=== PATIENT | female | born 1940 | race Caucasian/White ===

== ENCOUNTER 2017-04-22 10:55 | Inpatient (IN) | payer MEDICARE ==
--- NOTE | 2017-04-22 11:24 | EDM.PDOC ---
ED HPI GENERAL MEDICAL PROBLEM - General Chief Complaint: Cardiovascular Problem Stated Complaint: LOW PLUSE Time Seen by Provider: 04/22/17 11:05 Source of Information: Reports: Old Records, Provider (at [facility]), Other (caregiver) History Limitations: Reports: Uncooperative (patient with mental retardation) - History of Present Illness INITIAL COMMENTS - FREE TEXT/NARRATIVE: 77 yo female was taken this morning to the clinic in [place] for not eating, sleeping more, and difficulty with standing. No respiratory issues. No diaphoresis. No new meds or changes in dosage. After assessment in [place] she was noted to be bradycardic in the 40's so was referred to the ER. Gina lives in a fpc. Onset: Gradual Duration: Day(s): Location: Reports: Chest (No pain) Severity: Moderate Improves with: Reports: Rest Worsens with: Reports: Movement (or vertical/upright posture) Context: Reports: Other (unknown) Associated Symptoms: Reports: Malaise. Denies: Chest Pain, Fever/Chills, Shortness of Breath Treatments CNC SET UP OPERATOR: Reports: Other (see below) (none) Other Treatments CNC SET UP OPERATOR: none - Related Data Allergies Allergy/AdvReac Type Severity Reaction Status Date / Time No Known Allergies Allergy Verified 04/22/17 11:13 Home Meds: Home Meds Acetaminophen [Tylenol Extra Strength] 500 mg PO BID 09/05/15 [History] Aspirin [Aspirin EC] 81 mg PO DAILY 09/05/15 [History] Calcium Carbonate/Vitamin D3 [Calcium 600 + Vit D 400 Tablet] 1 each PO TID 04/11 [History] Cyanocobalamin (Vitamin B-12) [B-12] 500 mcg PO DAILY 09/05/15 [History] Docusate Sodium [Doc-Q-Lace] 100 mg PO DAILY 09/05/15 [History] Ferrous Sulfate [Ferrous Sulfate] 324 mg PO BID 09/05/15 [History] Folic Acid/Mv,Fe,Min [Centrum Multivitamin] 1 tab PO DAILY 09/05/15 [History] Pantoprazole Sodium [Protonix] 40 mg PO DAILY 09/05/15 [History] Phenytoin Sodium Extended 200 mg PO DAILY 09/05/15 [History] Phenytoin [Dilantin] 60 mg PO DAILY 09/05/15 [History] Potassium Chloride 20 meq PO DAILY 09/05/15 [History] Simvastatin [Simvastatin] 20 mg PO DAILY 09/05/15 [History] Triamterene/Hydrochlorothiazid [Triamterene-HCTZ 37.5-25 MG] 1 each PO DAILY 04/11 [History] cloNIDine HCl [Clonidine HCl] 0.1 mg PO DAILY 09/05/15 [History] Calcitonin,[place],Synthetic [Calcitonin-[place]] 1 spray NS DAILY 04/22/17 [ History] Captopril [Capoten] 50 mg PO BID 04/22/17 [History] Cholecalciferol (Vitamin D3) [D-2000] 2,000 unit PO DAILY 04/22/17 [History] Clotrimazole/Betamethasone Dip [Lotrisone Cream] 1 applic TP ASDIRECTED [History] Past Medical History HEENT History: Reports: Impaired Vision Cardiovascular History: Reports: High Cholesterol, Hypertension Gastrointestinal History: Reports: Cholelithiasis, Chronic Constipation, Colon Polyp, GERD, Other (See Below) Other Gastrointestinal History: Gastric cancer Genitourinary History: Reports: Urinary Incontinence Musculoskeletal History: Reports: Fracture, Neck Pain, Chronic, Osteoarthritis Neurological History: Reports: Seizure Psychiatric History: Reports: Learning Disability, Other (See Below) Other Psychiatric History: Mental retardation Endocrine/Metabolic History: Reports: Osteopenia Hematologic History: Reports: Anemia, Iron Deficiency Oncologic (Cancer) History: Reports: Other (See Below) Other Oncologic History: Stomach Dermatologic History: Reports: Eczema - Infectious Disease History Infectious Disease History: Reports: Chicken Pox, Shingles - Past Surgical History GI Surgical History: Reports: Cholecystectomy, Colonoscopy, Other (See Below) Social & Family History - Tobacco Use Smoking Status *Q: Never Smoker Second Hand Smoke Exposure: No - Alcohol Use Days Per Week of Alcohol Use: 0 - Recreational Drug Use Recreational Drug Use: No ED ROS GENERAL - Review of Systems Review Of Systems: Unable To Obtain (due to severe retardation) ED EXAM, GENERAL - Physical Exam Exam: See Below Exam Limited By: Uncooperative General Appearance: Alert, WD/WN, No Apparent Distress Eye Exam: Bilateral Eye: Normal Inspection, PERRL Ears: Normal External Exam, Normal Canal Ear Exam: Bilateral Ear: Auricle Normal, Canal Normal Nose: Normal Inspection, Normal Mucosa, No Blood Throat/Mouth: Normal Inspection, Normal Lips, Normal Oropharynx, Normal Voice, No Airway Compromise Head: Atraumatic, Normocephalic Neck: Normal Inspection Respiratory/Chest: No Respiratory Distress, Lungs Clear, Normal Breath Sounds, No Accessory Muscle Use Cardiovascular: Regular Rate, Rhythm, Bradycardia GI/Abdominal: Normal Bowel Sounds, Soft, Non-Tender, No Distention Back Exam: Normal Inspection. No: CVA Tenderness (R), CVA Tenderness (L) Extremities: Normal Inspection, Normal Range of Motion, Non-Tender, No Pedal Edema Neurological: Alert, CN II-XII Intact, No Motor/Sensory Deficits Psychiatric: Normal Affect, Normal Mood Skin Exam: Warm, Dry, Intact, Normal Color, No Rash Lymphatic: No Adenopathy Course - Vital Signs Text/Narrative:: Hospitalist notified @ 1200h, will see in ER Last Recorded V/S: Last Vital Signs Temp 35.1 C L 04/22/17 11:14 Pulse 42 L 04/22/17 11:14 Resp 10 L 04/22/17 11:14 BP 113/62 04/22/17 11:14 Pulse Ox 96 04/22/17 11:14 - Orders/Labs/Meds Orders: Active Orders 24 hr Category Date Time Status Cardiac Monitoring [RC] .As Directed Care 04/22/17 11:17 Active Sodium Chloride 0.9% @ 125 MLS/HR (1000ml) Med 04/22/17 12:00 Ordered Sodium Chloride 0.9% [Normal Saline] 1,000 ml IV ASDIRECTED Sodium Chloride 0.9% [Saline Flush] Med 04/22/17 11:17 Active 10 ml FLUSH ASDIRECTED PRN Saline Lock Insert [OM.PC] Routine Oth 04/22/17 11:17 Ordered Medication Orders Sodium Chloride (Normal Saline) 1,000 mls @ 125 mls/hr IV ASDIRECTED RAKESH Sodium Chloride (Saline Flush) 10 ml FLUSH ASDIRECTED PRN PRN Reason: Keep Vein Open Last Admin: 04/22/17 11:25 Dose: 10 ml Labs: Laboratory Tests 04/22/17 04/22/17 Range/Units 11: 11:27 WBC 6.0 (4.5-11.0) K/uL RBC 4.45 (3.30-5.50) M/uL Hgb 13.7 (12.0-15.0) g/dL Hct 42.1 (36.0-48.0) % MCV 95 (80-98) fL MCH 31 (27-31) pg MCHC 33 (32-36) % Plt Count 173 (150-400) K/uL Sodium 134 L (140-148) mmol/L Potassium 5.2 (3.6-5.2) mmol/L Chloride 99 L (100-108) mmol/L Carbon Dioxide 28 (21-32) mmol/L Anion Gap 12.2 (5.0-14.0) mmol/L BUN 26 H (7-18) mg/dL Creatinine 1.3 H (0.6-1.0) mg/dL Est Cr Clr Drug Dosing 28.21 mL/min Estimated GFR (MDRD) 40 L (>60) Glucose 117 H (74-106) mg/dL Calcium 9.4 (8.5-10.1) mg/dL Troponin I < 0.017 (0.000-0.056) ng/mL Meds: Medications Generic Name Dose Route Start Last Admin Trade Name Freq PRN Reason Stop Dose Admin Sodium Chloride 1,000 mls @ 125 mls/hr 04/22/17 12:00 Normal Saline IV ASDIRECTED RAKESH Sodium Chloride 10 ml 04/22/17 11:17 04/22/17 11:25 Saline Flush FLUSH 10 ml ASDIRECTED PRN Administration Keep Vein Open Departure - Departure Time of Disposition: 12:15 Disposition: Admitted As Inpatient 65 Condition: Fair Clinical Impression: Bradycardia Referrals: Tushar Mera MD [Primary Care Provider] - Forms: ED Department Discharge - My Orders Last 24 Hours: My Active Orders 04/22/17 11:17 Cardiac Monitoring [RC] .As Directed Sodium Chloride 0.9% [Saline Flush] 10 ml FLUSH ASDIRECTED PRN Saline Lock Insert [OM.PC] Routine 04/22/17 12:00 Sodium Chloride 0.9% @ 125 MLS/HR (1000ml) Sodium Chloride 0.9% [Normal Saline] 1,000 ml IV ASDIRECTED - Assessment/Plan Last 24 Hours: My Active Orders 04/22/17 11:17 Cardiac Monitoring [RC] .As Directed Sodium Chloride 0.9% [Saline Flush] 10 ml FLUSH ASDIRECTED PRN Saline Lock Insert [OM.PC] Routine 04/22/17 12:00 Sodium Chloride 0.9% @ 125 MLS/HR (1000ml) Sodium Chloride 0.9% [Normal Saline] 1,000 ml IV ASDIRECTED
[2017-04-22] MEDS: Sodium Chloride 0.9% 10 ML Syringe FLUSH PRN (11:25)
[2017-04-22] MEDS ORDERED: Sodium Chloride 0.9% 1,000 ML IV SCH (12:00)
--- NOTE | 2017-04-22 12:31 | PCM.HP ---
H&P History of Present Illness - General Date of Service: 04/22/17 Admit Problem/Dx: Admission Diagnosis/Problem Admission Diagnosis/Problem Bradycardia Source of Information: Provider, Other. No: Patient History Limitations: Reports: Altered Mental Status - History of Present Illness Initial Comments - Free Text/Narative: Gina presents to the emergency room today with fatigue and decreased level of consciousness. She is unable to provide any history at this time and history is gathered from one [facility]. Her caregiver reports that she has for the past few days been much less active than usual and has been sleeping much of the day. She falls asleep easily. She has not had much of an appetite. She is very unsteady on her feet which is a big change from usual. They're not aware of any fevers. She has not complained of any pain. She does appear to be a little winded with activity. They haven't noticed a change in bowel or bladder habits. She was initially seen in the clinic in [place] and a noted bradycardia and she was sent to the emergency room for further evaluation. Workup in the emergency room has revealed symptomatic bradycardia with a heart rate in the upper 30s. Laboratory studies are reassuring. She will be admitted for further monitoring and management. - Related Data Allergies/Adverse Reactions: Allergies Allergy/AdvReac Type Severity Reaction Status Date / Time No Known Allergies Allergy Verified 04/22/17 11:13 Home Medications: Home Meds Acetaminophen [Tylenol Extra Strength] 500 mg PO TID 09/05/15 [History] Aspirin [Aspirin EC] 81 mg PO DAILY 09/05/15 [History] Calcium Carbonate/Vitamin D3 [Calcium 600 + Vit D 400 Tablet] 1 each PO TID 04/11 [History] Cyanocobalamin (Vitamin B-12) [B-12] 500 mcg PO DAILY 09/05/15 [History] Docusate Sodium [Doc-Q-Lace] 100 mg PO DAILY 09/05/15 [History] Ferrous Sulfate [Ferrous Sulfate] 324 mg PO BID 09/05/15 [History] Pantoprazole Sodium [Protonix] 40 mg PO DAILY 09/05/15 [History] Potassium Chloride 20 meq PO DAILY 09/05/15 [History] Simvastatin [Simvastatin] 20 mg PO DAILY 09/05/15 [History] Triamterene/Hydrochlorothiazid [Triamterene-HCTZ 37.5-25 MG] 1 each PO DAILY 04/11 [History] cloNIDine HCl [Clonidine HCl] 0.2 mg PO BID 09/05/15 [History] Calcitonin,[place],Synthetic [Calcitonin-[place]] 1 spray NS DAILY 04/22/17 [ History] Captopril [Capoten] 50 mg PO BID 04/22/17 [History] Cholecalciferol (Vitamin D3) [D-2000] 2,000 unit PO DAILY 04/22/17 [History] Clotrimazole/Betamethasone Dip [Lotrisone Cream] 1 applic TP ASDIRECTED [History] Phenytoin Sodium Extended [Dilantin] 300 mg PO DAILY 04/22/17 [History] Pyridoxine HCl 100 mg PO DAILY 04/22/17 [History] Past Medical History HEENT History: Reports: Impaired Vision Cardiovascular History: Reports: High Cholesterol, Hypertension Gastrointestinal History: Reports: Cholelithiasis, Chronic Constipation, Colon Polyp, GERD, Other (See Below) Other Gastrointestinal History: Gastric cancer Genitourinary History: Reports: Urinary Incontinence Other Genitourinary History: Does alert staff when needs to use bathroom. Does not wear depends. Musculoskeletal History: Reports: Fracture, Neck Pain, Chronic, Osteoarthritis Neurological History: Reports: Seizure Psychiatric History: Reports: Learning Disability, Other (See Below) Other Psychiatric History: Mental retardation Endocrine/Metabolic History: Reports: Osteopenia Hematologic History: Reports: Anemia, Iron Deficiency Oncologic (Cancer) History: Reports: Other (See Below) Other Oncologic History: Stomach Dermatologic History: Reports: Eczema - Infectious Disease History Infectious Disease History: Reports: Chicken Pox, Shingles - Past Surgical History GI Surgical History: Reports: Cholecystectomy, Colonoscopy, Other (See Below) Social & Family History - Family History Family Medical History: Unobtainable - Tobacco Use Smoking Status *Q: Never Smoker Second Hand Smoke Exposure: No - Caffeine Use Caffeine Use: Reports: Coffee - Alcohol Use Days Per Week of Alcohol Use: 0 - Recreational Drug Use Recreational Drug Use: No H&P Review of Systems - Review of Systems: Review Of Systems: Unable To Obtain Free Text/Narrative: pt not able to respond to any questions Exam - Exam Exam: See Below - Vital Signs Vital Signs: Last Vital Signs Temp 35.1 C L 04/22/17 11:14 Pulse 42 L 04/22/17 11:14 Resp 10 L 04/22/17 11:14 BP 113/62 04/22/17 11:14 Pulse Ox 96 04/22/17 11:14 Weight: 70.307 kg - Exam Quality Assessment: No: Supplemental Oxygen General: Alert, Cooperative, Lethargic. No: Oriented HEENT: Conjunctiva Clear, Mucosa Moist & [place]. No: Scleral Icterus Neck: Supple, Trachea Midline. No: Lymphadenopathy Lungs: Clear to Auscultation, Normal Respiratory Effort Cardiovascular: Regular Rhythm, Bradycardia. No: Systolic Murmur GI/Abdominal Exam: Normal Bowel Sounds, Soft Extremities: No Pedal Edema. No: Increased Warmth Peripheral Pulses: 1+: Dorsalis Pedis (L), Dorsalis Pedis (R) Skin: Warm, Dry Neuro Extensive - Mental Status: Alert, Slow Response to Commands. No: Oriented x3 Neuro Extensive - Motor, Sensory, Reflexes: Dysarthria. No: Abnormal Motor, Tremor Psychiatric: Alert, Normal Affect - Patient Data Lab Results Last 24 hrs: Laboratory Results - last 24 hr 04/22/17 04/22/17 Range/Units 11:27 11:27 WBC 6.0 (4.5-11.0) K/uL RBC 4.45 (3.30-5.50) M/uL Hgb 13.7 (12.0-15.0) g/dL Hct 42.1 (36.0-48.0) % MCV 95 (80-98) fL MCH 31 (27-31) pg MCHC 33 (32-36) % Plt Count 173 (150-400) K/uL Sodium 134 L (140-148) mmol/L Potassium 5.2 (3.6-5.2) mmol/L Chloride 99 L (100-108) mmol/L Carbon Dioxide 28 (21-32) mmol/L Anion Gap 12.2 (5.0-14.0) mmol/L BUN 26 H (7-18) mg/dL Creatinine 1.3 H (0.6-1.0) mg/dL Est Cr Clr Drug Dosing 28.21 mL/min Estimated GFR (MDRD) 40 L (>60) Glucose 117 H (74-106) mg/dL Calcium 9.4 (8.5-10.1) mg/dL Troponin I < 0.017 (0.000-0.056) ng/mL Result Diagrams: 04/22/17 11:27 04/22/17 11:27 EKG INTERPRETATION EKG Date: 04/22/17 ([facility] EKG) Rhythm: Other (sinus bradycardia) Rate (Beats/Min): 40 [place]: Normal P-Wave: Present QRS: Normal ST-T: Normal QT: Normal EKG Interpretation Comments: EKG image personally reviewed *Q Meaningful Use (ADM) - VTE *Q VTE Criteria *Q: VTE Pharmacological Contraindications *Q: Patient Scheduled Surgery - VTE Risk Assess *Q Each Risk Factor Represents 1 Point: Minor Surgery Planned Total Score 1 Point Risk Factors: 1 Each Risk Factor Represents 2 Points: None Total Score 2 Point Risk Factors: 0 Each Risk Factor Represents 3 Points: Age 75 Years or Greater Total Score 3 Point Risk Factors: 3 Each Risk Factor Represents 5 Points: None Total Score 5 Point Risk Factors: 0 Venous Thromboembolism Risk Factor Score *Q: 4 - Stroke *Q Stroke Criteria *Q: - AMI *Q AMI Criteria *Q: - Problem List (1) Symptomatic bradycardia SNOMED Code(s): 91053286 ICD Code: R00.1 - BRADYCARDIA, UNSPECIFIED Status: Acute Current Visit: Yes (2) Epilepsy SNOMED Code(s): 74181688 ICD Code: G40.909 - EPILEPSY, UNSP, NOT INTRACTABLE, WITHOUT STATUS EPILEPTICUS Status: Chronic Current Visit: Yes Qualifiers: Epilepsy type: unspecified Intractability: not intractable Status epilepticus: without status epilepticus Qualified Code(s): G40.909 - Epilepsy , unspecified, not intractable, without status epilepticus (3) Mental retardation SNOMED Code(s): 21510362 ICD Code: F79 - UNSPECIFIED INTELLECTUAL DISABILITIES Status: Chronic Current Visit: Yes Problem List Initiated/Reviewed/Updated: Yes Orders Last 24hrs: Active Orders 24 hr Category Date Time Status Patient Status Manage Transfer [TRANSFER] Routine ADT 04/22/17 12:22 Ordered Cardiac Monitoring [RC] .As Directed Care 04/22/17 11:17 Active MAGNESIUM [CHEM] Routine Lab 04/22/17 11:25 Received Sodium Chloride 0.9% [Normal Saline] 1,000 ml Med 04/22/17 12:00 Active IV ASDIRECTED Sodium Chloride 0.9% [Saline Flush] Med 11/27/17 11:17 Active 10 ml FLUSH ASDIRECTED PRN Saline Lock Insert [OM.PC] Routine Oth 04/22/17 11:17 Ordered Resuscitation Status Routine Resus Stat 04/22/17 12:24 Ordered Medication Orders Sodium Chloride (Normal Saline) 1,000 mls @ 125 mls/hr IV ASDIRECTED RAKESH Last Admin: 04/22/17 12:05 Dose: 125 mls/hr Sodium Chloride (Saline Flush) 10 ml FLUSH ASDIRECTED PRN PRN Reason: Keep Vein Open Last Admin: 04/22/17 11:25 Dose: 10 ml Assessment/Plan Comment:: ASSESSMENT AND PLAN - Symptomatically bradycardia - significant symptoms. At this point and not sure if it's related to conduction disease or possibly medication effect. Clonidine seems to be the most likely potential culprit but still has a low potential to be causing this kind of trouble. Planning admission and will hold the medication and monitor her heart rate overnight and decide on pacemaker insertion tomorrow. -Cardiac monitoring -Discontinue clonidine -Reassess necessity of permanent pacemaker tomorrow -Check magnesium and TSH Epilepsy - chronic and stable. -Continue home medications Decision-making capacity - Patient has a surrogate decision-maker should be contacted with any need for consent. Her number is listed in the paper chart as well as the electronic medical record. Maintenance issues - - DVT prophylaxis - mechanical with possible surgery - GI prophylaxis - PPI - Nutrition - regular diet - Gibbs catheter - not indicated CODE STATUS - full code Admission justification - This patient will be admitted for inpatient services and is medically appropriate meeting medical necessity for inpatient admission as outlined in my documentation. I reasonably expect the patient will require inpatient services that span a period time over 2 midnights. I reasonably expect this patient to be discharged or transferred within 96 hours [facility] Disposition - anticipate discharge to home after the hospital stay Primary care physician - Dr Ede Moreno M.D.
[2017-04-22] MEDS ORDERED: Polyethylene Glycol 3350 Powder 17 GM Packet PO PRN (13:59)
[2017-04-22] MEDS ORDERED: Acetaminophen 325 MG Tab PO PRN (13:59)
[2017-04-22] MEDS ORDERED: Ondansetron 4 MG Tab.DIS PO PRN (13:59)
[2017-04-22] MEDS: Acetaminophen 500 MG Tab PO SCH ×2 (14:58→22:25)
[2017-04-22] MEDS: Magnesium Sulfate/Water 2 GM in Premix Bag 1 BAG IV SCH ×2 (16:00→22:27)
[2017-04-22] MEDS ORDERED: LORazepam 2 MG/ML MDV IVPUSH PRN (16:44)
[2017-04-22] MEDS: Ferrous Sulfate 325 MG Tab PO SCH (22:23)
[2017-04-22] MEDS: Simvastatin 20 MG Tab PO SCH (22:26)
[2017-04-23] MEDS: LORazepam 0.5 MG Tab PO PRN ×2 (04:15→20:34)
[2017-04-23] MEDS ORDERED: Potassium Chloride 10% 20 MEQ/15 ML Soln 15 ML UD Cup PO SCH (09:00)
[2017-04-23] MEDS ORDERED: LORazepam 2 MG/ML MDV IVPUSH PRN (09:49)
--- NOTE | 2017-04-23 09:53 | PCM.PN ---
- General Info Date of Service: 04/23/17 Subjective Update: Ms. Greco is a 77-year-old woman who was admitted yesterday with weakness and lethargy secondary to bradycardia. Clonidine was identified as a possible contributing factor to her bradycardia and has been held. Since yesterday heart rate has improved modestly, she is currently very sedate and lethargic secondary to having received lorazepam for agitation. Unable to answer specific questions concerning review of systems secondary to cognitive impairment and sedation. - Patient Data Vitals - Most Recent: Last Vital Signs Temp 95.7 F 04/23/17 07:58 Pulse 48 L 04/23/17 09:16 Resp 13 04/23/17 09:16 BP 127/55 L 04/23/17 09:16 Pulse Ox 90 L 04/23/17 09:16 Weight - Most Recent: 151 lb 10.848 oz I&O - Last 24 Hours: Intake & Output 04/22/17 04/23/17 04/23/17 22:59 06:59 14:59 Intake Total 50 368 Output Total 850 Balance 50 -482 Med Orders - Current: Current Medications Acetaminophen (Tylenol Extra Strength) 500 mg PO TID [facility] Last Admin: 04/22/17 22:25 Dose: 500 mg Acetaminophen (Tylenol) 650 mg PO Q4H PRN PRN Reason: Pain (Mild 1-3)/fever Aspirin (Halfprin) 81 mg PO DAILY [facility] Calcitonin Saline (Miacalcin Nasal [place]) 0 ml TRAY DAILY [facility] Captopril (Capoten) 50 mg PO BID [facility] Last Admin: 04/22/17 22:26 Dose: 50 mg Cyanocobalamin (Vitamin B12) 500 mcg PO DAILY [facility] Docusate Sodium (Colace) 100 mg PO DAILY [facility] Ferrous Sulfate (Ferrous Sulfate) 324 mg PO BID [facility] Last Admin: 04/22/17 22:23 Dose: Not Given Lorazepam (Ativan) 0.5 mg PO Q4H PRN PRN Reason: Anxiety Last Admin: 04/23/17 04:15 Dose: 0.5 mg Lorazepam (Ativan) 0.25 mg IVPUSH Q4H PRN PRN Reason: Anxiety Ondansetron HCl (Zofran Odt) 4 mg PO Q6H PRN PRN Reason: Nausea able to take PO Pantoprazole Sodium (Protonix) 40 mg PO DAILY@0730 [facility] Phenytoin Sodium (Phenytoin) 300 mg PO DAILY [facility] Polyethylene Glycol (Miralax) 17 gm PO DAILY PRN PRN Reason: Constipation Potassium Chloride (Potassium Chloride Solution) 20 meq PO DAILY RAKESH Pyridoxine HCl (Vitamin B6-Pyridoxine) 100 mg PO DAILY RAKESH Simvastatin (Zocor) 20 mg PO BEDTIME RAKESH Last Admin: 04/22/17 22:26 Dose: 20 mg Sodium Chloride (Saline Flush) 10 ml FLUSH ASDIRECTED PRN PRN Reason: Keep Vein Open Last Admin: 04/22/17 11:25 Dose: 10 ml Triamterene/HCTZ (Dyazide 25-37.5 Mg) 1 each PO DAILY RAKESH Discontinued Medications Sodium Chloride (Normal Saline) 1,000 mls @ 125 mls/hr IV ASDIRECTED RAKESH Last Admin: 04/22/17 12:05 Dose: 125 mls/hr Magnesium Sulfate 2 gm/ Premix 50 mls @ 12.5 mls/hr IV Q6H RAKESH Stop: 04/23/17 01:59 Last Admin: 04/22/17 22:27 Dose: 12.5 mls/hr Lorazepam (Ativan) 0.5 mg IVPUSH Q4H PRN PRN Reason: Anxiety Last Admin: 04/22/17 17:06 Dose: 0.5 mg - Exam General: Sedated, Lethargic Lungs: Clear to Auscultation, Normal Respiratory Effort Cardiovascular: Regular Rhythm, No Murmurs, Bradycardia GI/Abdominal Exam: Normal Bowel Sounds, Soft, Non-Tender, No Organomegaly, No Distention - Problem List Review Problem List Initiated/Reviewed/Updated: Yes - My Orders Last 24 Hours: My Active Orders 04/23/17 09:49 LORazepam [Ativan] 0.25 mg IVPUSH Q4H PRN - Plan Plan:: ASSESSMENT AND PLAN - Symptomatic bradycardia - significant symptoms. At this point and not sure if it 's related to conduction disease or possibly medication effect. Clonidine seems to be the most likely potential culprit but still has a low potential to be causing this kind of trouble. Planning admission and will hold the medication and monitor her heart rate overnight and decide on pacemaker insertion tomorrow. -Cardiac monitoring -Discontinue clonidine -Reassess necessity of permanent pacemaker tomorrow -Given improvement in heart rate we'll continue to monitor an additional 24 hours off of clonidine Epilepsy - chronic and stable. -Continue home medications Decision-making capacity - Patient has a surrogate decision-maker should be contacted with any need for consent. Her number is listed in the paper chart as well as the electronic medical record. Maintenance issues - - DVT prophylaxis - mechanical with possible surgery - GI prophylaxis - PPI - Nutrition - regular diet - Gibbs catheter - not indicated CODE STATUS - full code Admission justification - This patient will be admitted for inpatient services and is medically appropriate meeting medical necessity for inpatient admission as outlined in my documentation. I reasonably expect the patient will require inpatient services that span a period time over 2 midnights. I reasonably expect this patient to be discharged or transferred within 96 hours [facility]. Disposition - anticipate discharge to home after the hospital stay Primary care physician - Dr Mera
[2017-04-23] MEDS ORDERED: Sodium Chloride 0.9% 1,000 ML IV SCH (12:00)
[2017-04-23] MEDS: Calcitonin (Salmon) Nasal Spray 3.7 ML Bottle NAS SCH (13:47)
[2017-04-23] MEDS: Pantoprazole 40 MG Tab.CR PO SCH (13:57)
[2017-04-23] MEDS: Magnesium Oxide 400 MG Tab PO SCH ×2 (13:58→20:35)
[2017-04-23] MEDS: Acetaminophen 500 MG Tab PO SCH ×3 (13:59→20:34)
[2017-04-23] MEDS: Vitamin B6-pyridOXINE 50 MG Tab PO SCH (13:59)
[2017-04-23] MEDS: Docusate Sodium 100 MG Cap PO SCH (14:00)
[2017-04-23] MEDS: Cyanocobalamin (Vitamin B12) 1,000 MCG Tab PO SCH (14:00)
[2017-04-23] MEDS: Aspirin 81 MG Tab.EC PO SCH (14:00)
[2017-04-23] MEDS: Ferrous Sulfate 325 MG Tab PO SCH ×2 (14:01→20:34)
[2017-04-23] MEDS: Hydrochlorothiazide/Triamterene 25-37.5 MG Cap PO SCH (14:02)
[2017-04-23] MEDS: Phenytoin 100 MG Cap.ER PO SCH (14:02)
[2017-04-23] MEDS: Simvastatin 20 MG Tab PO SCH (20:35)
[2017-04-24] MEDS: Pantoprazole 40 MG Tab.CR PO SCH (07:26)
[2017-04-24] MEDS: Docusate Sodium 100 MG Cap PO SCH (08:27)
[2017-04-24] MEDS: Ferrous Sulfate 325 MG Tab PO SCH ×2 (08:28→20:05)
[2017-04-24] MEDS: Hydrochlorothiazide/Triamterene 25-37.5 MG Cap PO SCH (08:28)
[2017-04-24] MEDS: Calcitonin (Salmon) Nasal Spray 3.7 ML Bottle NAS SCH (08:29)
[2017-04-24] MEDS: Magnesium Oxide 400 MG Tab PO SCH ×2 (08:29→20:05)
[2017-04-24] MEDS: Aspirin 81 MG Tab.EC PO SCH (08:29)
[2017-04-24] MEDS: Phenytoin 100 MG Cap.ER PO SCH (08:30)
[2017-04-24] MEDS: Acetaminophen 500 MG Tab PO SCH ×3 (08:31→20:05)
[2017-04-24] MEDS: Cyanocobalamin (Vitamin B12) 1,000 MCG Tab PO SCH (08:31)
[2017-04-24] MEDS: Vitamin B6-pyridOXINE 50 MG Tab PO SCH (08:31)
[2017-04-24] MEDS: hydrALAZINE 10 MG Tab PO SCH ×4 (09:02→21:31)
--- NOTE | 2017-04-24 09:05 | PCM.PN ---
- General Info Date of Service: 04/24/17 Subjective Update: Ms. Greco has experienced improvement in her heart rate over the past 24 hours typically now running in the 50s. Blood pressures trended somewhat high off of the clonidine. This morning she is sitting in the chair and eating breakfast. She is unable to provide significant information concerning review of systems because of her underlying cognitive impairment. Functional Status: Reports: Tolerating Diet, Urinating - Patient Data Vitals - Most Recent: Last Vital Signs Temp 96.3 F 04/23/17 23:46 Pulse 52 L 04/24/17 06:00 Resp 14 04/24/17 06:00 BP 183/82 H 04/24/17 08:26 Pulse Ox 99 04/24/17 06:00 Weight - Most Recent: 151 lb 10.848 oz I&O - Last 24 Hours: Intake & Output 04/23/17 04/24/17 04/24/17 22:59 06:59 14:59 Intake Total 508 1455 Output Total 600 500 Balance -92 955 Lab Results Last 24 Hours: Laboratory Results - last 24 hr 04/24/17 Range/Units 04:30 Sodium 137 L (140-148) mmol/L Potassium 4.6 (3.6-5.2) mmol/L Chloride 103 (100-108) mmol/L Carbon Dioxide 26 (21-32) mmol/L Anion Gap 12.6 (5.0-14.0) mmol/L BUN 19 H (7-18) mg/dL Creatinine 1.1 H (0.6-1.0) mg/dL Est Cr Clr Drug Dosing 33.05 mL/min Estimated GFR (MDRD) 48 L (>60) Glucose 90 (74-106) mg/dL Calcium 8.5 (8.5-10.1) mg/dL Magnesium 1.9 (1.8-2.4) mg/dL Med Orders - Current: Current Medications Acetaminophen (Tylenol Extra Strength) 500 mg PO TID [facility] Last Admin: 04/24/17 08:31 Dose: 500 mg Acetaminophen (Tylenol) 650 mg PO Q4H PRN PRN Reason: Pain (Mild 1-3)/fever Aspirin (Halfprin) 81 mg PO DAILY [facility] Last Admin: 04/24/17 08:29 Dose: 81 mg Calcitonin [place] (Miacalcin Nasal [place]) 0 ml TRAY DAILY [facility] Last Admin: 04/24/17 08:29 Dose: 1 spray Captopril (Capoten) 50 mg PO BID [facility] Last Admin: 04/24/17 08:26 Dose: 50 mg Cyanocobalamin (Vitamin B12) 500 mcg PO DAILY [facility] Last Admin: 04/24/17 08:31 Dose: 500 mcg Docusate Sodium (Colace) 100 mg PO DAILY [facility] Last Admin: 04/24/17 08:27 Dose: 100 mg Ferrous Sulfate (Ferrous Sulfate) 324 mg PO BID [facility] Last Admin: 04/24/17 08:28 Dose: 325 mg Hydralazine HCl (Apresoline) 10 mg PO Q6H [facility] Sodium Chloride (Normal Saline) 1,000 mls @ 75 mls/hr IV ASDIRECTED [facility] Last Admin: 04/23/17 19:37 Dose: 75 mls/hr Lorazepam (Ativan) 0.5 mg PO Q4H PRN PRN Reason: Anxiety Last Admin: 04/23/17 20:34 Dose: 0.5 mg Lorazepam (Ativan) 0.25 mg IVPUSH Q4H PRN PRN Reason: Anxiety Magnesium Oxide (Magnesium Oxide) 400 mg PO BID [facility] Last Admin: 04/24/17 08:29 Dose: 400 mg Ondansetron HCl (Zofran Odt) 4 mg PO Q6H PRN PRN Reason: Nausea able to take PO Pantoprazole Sodium (Protonix) 40 mg PO DAILY@0730 [facility] Last Admin: 04/24/17 07:26 Dose: 40 mg Phenytoin Sodium (Phenytoin) 300 mg PO DAILY [facility] Last Admin: 04/24/17 08:30 Dose: 300 mg Polyethylene Glycol (Miralax) 17 gm PO DAILY PRN PRN Reason: Constipation Pyridoxine HCl (Vitamin B6-Pyridoxine) 100 mg PO DAILY [facility] Last Admin: 04/24/17 08:31 Dose: 100 mg Simvastatin (Zocor) 20 mg PO BEDTIME [facility] Last Admin: 04/23/17 20:35 Dose: 20 mg Sodium Chloride (Saline Flush) 10 ml FLUSH ASDIRECTED PRN PRN Reason: Keep Vein Open Last Admin: 04/22/17 11:25 Dose: 10 ml Triamterene/HCTZ (Dyazide 25-37.5 Mg) 1 each PO DAILY [facility] Last Admin: 04/24/17 08:28 Dose: 1 each Discontinued Medications Sodium Chloride (Normal Saline) 1,000 mls @ 125 mls/hr IV ASDIRECTED [facility] Last Admin: 04/22/17 12:05 Dose: 125 mls/hr Magnesium Sulfate 2 gm/ Premix 50 mls @ 12.5 mls/hr IV Q6H [facility] Stop: 04/23/17 01:59 Last Admin: 04/22/17 22:27 Dose: 12.5 mls/hr Lorazepam (Ativan) 0.5 mg IVPUSH Q4H PRN PRN Reason: Anxiety Last Admin: 04/22/17 17:06 Dose: 0.5 mg Potassium Chloride (Potassium Chloride Solution) 20 meq PO DAILY [facility] - Exam General: Alert, No Acute Distress Lungs: Clear to Auscultation, Normal Respiratory Effort Cardiovascular: Regular Rhythm, No Murmurs, Bradycardia GI/Abdominal Exam: Normal Bowel Sounds, Soft, Non-Tender, No Organomegaly, No Distention Extremities: Non-Tender, No Pedal Edema Skin: Warm, Dry - Problem List Review Problem List Initiated/Reviewed/Updated: Yes - My Orders Last 24 Hours: My Active Orders 04/23/17 09:49 LORazepam [Ativan] 0.25 mg IVPUSH Q4H PRN 04/23/17 12:00 Magnesium Oxide 400 mg PO BID Sodium Chloride 0.9% [Normal Saline] 1,000 ml IV ASDIRECTED 04/24/17 10:00 hydrALAZINE [Apresoline] 10 mg PO Q6H - Plan Plan:: ASSESSMENT AND PLAN - Symptomatic bradycardia - significant symptoms. At this point and not sure if it 's related to conduction disease or possibly medication effect. Heart rate has improved off of clonidine but continues to remain less than 60. -Cardiac monitoring -Discontinue clonidine -Reassess necessity of permanent pacemaker tomorrow -Given improvement in heart rate we'll continue to monitor an additional 24 hours off of clonidine Epilepsy - chronic and stable. -Continue home medications Decision-making capacity - Patient has a surrogate decision-maker should be contacted with any need for consent. Her number is listed in the paper chart as well as the electronic medical record. Maintenance issues - - DVT prophylaxis - mechanical with possible surgery - GI prophylaxis - PPI - Nutrition - regular diet - Gibbs catheter - not indicated CODE STATUS - full code Admission justification - This patient will be admitted for inpatient services and is medically appropriate meeting medical necessity for inpatient admission as outlined in my documentation. I reasonably expect the patient will require inpatient services that span a period time over 2 midnights. I reasonably expect this patient to be discharged or transferred within 96 hours after admission to the [facility]. Disposition - anticipate discharge to home after the hospital stay Primary care physician - Dr Mera
--- NOTE | 2017-04-24 17:53 | PCM.SN ---
- Free Text/Narrative Note: Ms. Greco has had ongoing bradycardia despite having stopped clonidine. Heart rate today has been in the upper 40s to low 50s. Her hoist mechanic came to see her today and feels that she remains lethargic and weak from her baseline. 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 I discussed this with her guardian, Amie Rose and she has given consent to proceed with permanent pacemaker placement tomorrow. Dr. Kumari has been consult and will see the patient in the morning. She will be given IV fluids after midnight for hydration and kept nothing by mouth after midnight.
[2017-04-24] MEDS: Simvastatin 20 MG Tab PO SCH (20:09)
[2017-04-24] MEDS: LORazepam 0.5 MG Tab PO PRN (22:02)
[2017-04-24] MEDS: Sodium Chloride 0.9% 1,000 ML IV SCH (23:21)
[2017-04-25] MEDS: hydrALAZINE 10 MG Tab PO SCH ×5 (05:00→22:34)
[2017-04-25] MEDS: Sodium Chloride 0.9% 1,000 ML IV SCH ×2 (07:59→15:02)
[2017-04-25] MEDS: Phenytoin 100 MG Cap.ER PO SCH (08:00)
[2017-04-25] MEDS: Pantoprazole 40 MG Tab.CR PO SCH (08:02)
[2017-04-25] MEDS ORDERED: Bupivacaine 0.5% 50 ML MDV ONE (09:07)
[2017-04-25] MEDS ORDERED: Meropenem 500 MG SDV ONE (09:07)
[2017-04-25] MEDS ORDERED: Lidocaine 1% with EPINEPHrine 1:100,000 50 ML MDV ONE (09:07)
--- NOTE | 2017-04-25 09:16 | PCM.PN ---
- General Info Date of Service: 04/25/17 Subjective Update: Ms. Greco continued to experience bradycardia during the day yesterday and remained weak and lethargic from baseline. Decision was made to proceed with permanent pacemaker placement which is scheduled for this morning. She is otherwise been hemodynamically stable and afebrile over the past 24 hours. 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 - Patient Data Vitals - Most Recent: Last Vital Signs Temp 97.5 F 04/25/17 08:00 Pulse 60 04/25/17 05:58 Resp 16 04/25/17 08:00 BP 119/64 04/25/17 08:00 Pulse Ox 98 04/25/17 08:00 Weight - Most Recent: 151 lb 10.848 oz I&O - Last 24 Hours: Intake & Output 04/24/17 04/25/17 04/25/17 22:59 06:59 14:59 Intake Total 360 827 Output Total 400 Balance -40 827 Med Orders - Current: Current Medications Acetaminophen (Tylenol Extra Strength) 500 mg PO TID [facility] Last Admin: 04/24/17 20:05 Dose: 500 mg Acetaminophen (Tylenol) 650 mg PO Q4H PRN PRN Reason: Pain (Mild 1-3)/fever Aspirin (Halfprin) 81 mg PO DAILY [facility] Last Admin: 04/24/17 08:29 Dose: 81 mg Calcitonin [place] (Miacalcin Nasal [place]) 0 ml TRAY DAILY [facility] Last Admin: 04/24/17 08:29 Dose: 1 spray Captopril (Capoten) 50 mg PO BID [facility] Last Admin: 04/25/17 08:00 Dose: 50 mg Cyanocobalamin (Vitamin B12) 500 mcg PO DAILY [facility] Last Admin: 04/24/17 08:31 Dose: 500 mcg Docusate Sodium (Colace) 100 mg PO DAILY [facility] Last Admin: 04/24/17 08:27 Dose: 100 mg Ferrous Sulfate (Ferrous Sulfate) 324 mg PO BID [facility] Last Admin: 04/24/17 20:05 Dose: 325 mg Sodium Chloride (Normal Saline) 1,000 mls @ 100 mls/hr IV ASDIRECTED [facility] Last Admin: 04/25/17 07:59 Dose: 100 mls/hr Cefazolin Sodium/Dextrose 2 gm (/ Premix) 50 mls @ 100 mls/hr IV ONCALL ONE Stop: 04/25/17 11:59 Lorazepam (Ativan) 0.5 mg PO Q4H PRN PRN Reason: Anxiety Last Admin: 04/24/17 22:02 Dose: 0.5 mg Lorazepam (Ativan) 0.25 mg IVPUSH Q4H PRN PRN Reason: Anxiety Magnesium Oxide (Magnesium Oxide) 400 mg PO BID [facility] Last Admin: 04/24/17 20:05 Dose: 400 mg Ondansetron HCl (Zofran Odt) 4 mg PO Q6H PRN PRN Reason: Nausea able to take PO Pantoprazole Sodium (Protonix) 40 mg PO DAILY@0730 [facility] Last Admin: 04/25/17 08:02 Dose: Not Given Phenytoin Sodium (Phenytoin) 300 mg PO DAILY [facility] Last Admin: 04/25/17 08:00 Dose: 300 mg Polyethylene Glycol (Miralax) 17 gm PO DAILY PRN PRN Reason: Constipation Pyridoxine HCl (Vitamin B6-Pyridoxine) 100 mg PO DAILY [facility] Last Admin: 04/24/17 08:31 Dose: 100 mg Simvastatin (Zocor) 20 mg PO BEDTIME [facility] Last Admin: 04/24/17 20:09 Dose: 20 mg Sodium Chloride (Saline Flush) 10 ml FLUSH ASDIRECTED PRN PRN Reason: Keep Vein Open Last Admin: 04/22/17 11:25 Dose: 10 ml Triamterene/HCTZ (Dyazide 25-37.5 Mg) 1 each PO DAILY [facility] Last Admin: 04/24/17 08:28 Dose: 1 each Discontinued Medications Bupivacaine HCl (Marcaine 0.5%) Confirm Administered Dose 50 ml .ROUTE .STK-MED ONE Stop: 04/25/17 09:08 Hydralazine HCl (Apresoline) 10 mg PO Q6H [facility] Last Admin: 04/25/17 08:00 Dose: 10 mg Sodium Chloride (Normal Saline) 1,000 mls @ 125 mls/hr IV ASDIRECTED [facility] Last Admin: 04/22/17 12:05 Dose: 125 mls/hr Magnesium Sulfate 2 gm/ Premix 50 mls @ 12.5 mls/hr IV Q6H [facility] Stop: 04/23/17 01:59 Last Admin: 04/22/17 22:27 Dose: 12.5 mls/hr Sodium Chloride (Normal Saline) 1,000 mls @ 75 mls/hr IV ASDIRECTED [facility] Last Admin: 04/23/17 19:37 Dose: 75 mls/hr Lidocaine/Epinephrine (Xylocaine 1% With Epinephrine 1:100,000) Confirm Administered Dose 50 ml .ROUTE .STK-MED ONE Stop: 04/25/17 09:08 Lorazepam (Ativan) 0.5 mg IVPUSH Q4H PRN PRN Reason: Anxiety Last Admin: 04/22/17 17:06 Dose: 0.5 mg Meropenem (Merrem) Confirm Administered Dose 500 mg .ROUTE .STK-MED ONE Stop: 04/25/17 09:08 Potassium Chloride (Potassium Chloride Solution) 20 meq PO DAILY [facility] - Exam Quality Assessment: DVT Prophylaxis General: Alert, No Acute Distress Lungs: Clear to Auscultation, Normal Respiratory Effort Cardiovascular: Regular Rhythm, Bradycardia. No: Murmurs GI/Abdominal Exam: Soft, Non-Tender, No Organomegaly, No Distention Extremities: Non-Tender, No Pedal Edema Skin: Warm, Dry - Problem List Review Problem List Initiated/Reviewed/Updated: Yes - My Orders Last 24 Hours: My Active Orders 04/24/17 09:06 Convert IV to Saline Lock [OM.PC] Routine 04/24/17 17:49 Notify Provider Consults [RC] ASDIRECTED 04/24/17 23:55 Sodium Chloride 0.9% [Normal Saline] 1,000 ml IV ASDIRECTED 04/25/17 07:00 Consult to Physician [CONS] Routine 04/25/17 21:00 cloNIDine [Catapres] 0.2 mg PO Q12HR 04/25/17 Breakfast Nothing per Oral After Midnight Diet [DIET] - Plan Plan:: ASSESSMENT AND PLAN - Symptomatic bradycardia - significant symptoms. Heart rate has remained low despite having held clonidine. -Cardiac monitoring -Permanent pacemaker placement today -Resume clonidine after pacemaker placement Epilepsy - chronic and stable. -Continue home medications Decision-making capacity - Patient has a surrogate decision-maker should be contacted with any need for consent. Her number is listed in the paper chart as well as the electronic medical record. Maintenance issues - - DVT prophylaxis - mechanical with possible surgery - GI prophylaxis - PPI - Nutrition - regular diet - Gibbs catheter - not indicated CODE STATUS - full code Admission justification - This patient will be admitted for inpatient services and is medically appropriate meeting medical necessity for inpatient admission as outlined in my documentation. I reasonably expect the patient will require inpatient services that span a period time over 2 midnights. I reasonably expect this patient to be discharged or transferred within 96 hours after admission to the [facility]. Disposition - anticipate discharge to home after the hospital stay Primary care physician - Dr Mera
[2017-04-25] MEDS: Ferrous Sulfate 325 MG Tab PO SCH ×2 (10:31→16:06)
[2017-04-25] MEDS: Acetaminophen 500 MG Tab PO SCH ×3 (10:31→20:45)
[2017-04-25] MEDS: Magnesium Oxide 400 MG Tab PO SCH ×2 (10:31→20:44)
[2017-04-25] MEDS ORDERED: Propofol 200 MG/20 ML SDV ONE (10:41)
[2017-04-25] MEDS ORDERED: fentaNYL 100 MCG/2 ML SDV ONE (10:41)
[2017-04-25] MEDS ORDERED: Midazolam 1 MG/ML 2 ML SDV ONE (10:41)
[2017-04-25] MEDS ORDERED: ceFAZolin 2 GM in Premix Bag 1 BAG IV ONE (11:30)
[2017-04-25] MEDS: Calcitonin (Salmon) Nasal Spray 3.7 ML Bottle NAS SCH (14:48)
[2017-04-25] MEDS: Hydrochlorothiazide/Triamterene 25-37.5 MG Cap PO SCH (14:49)
[2017-04-25] MEDS: Aspirin 81 MG Tab.EC PO SCH (14:49)
[2017-04-25] MEDS: Docusate Sodium 100 MG Cap PO SCH (14:49)
[2017-04-25] MEDS: Cyanocobalamin (Vitamin B12) 1,000 MCG Tab PO SCH (14:49)
[2017-04-25] MEDS: Vitamin B6-pyridOXINE 50 MG Tab PO SCH (14:50)
[2017-04-25] MEDS: Sodium Chloride 0.9% 10 ML Syringe FLUSH PRN (16:30)
[2017-04-25] MEDS: Simvastatin 20 MG Tab PO SCH (20:44)
[2017-04-25] MEDS: LORazepam 0.5 MG Tab PO PRN (20:44)
[2017-04-25] MEDS ORDERED: cloNIDine 0.1 MG Tab PO SCH (21:00)
[2017-04-26] MEDS: hydrALAZINE 10 MG Tab PO SCH ×2 (04:04→10:26)
[2017-04-26] MEDS: Pantoprazole 40 MG Tab.CR PO SCH (08:50)
[2017-04-26] MEDS: Ferrous Sulfate 325 MG Tab PO SCH (08:50)
[2017-04-26] MEDS: Aspirin 81 MG Tab.EC PO SCH (08:51)
[2017-04-26] MEDS: Docusate Sodium 100 MG Cap PO SCH (08:51)
[2017-04-26] MEDS: Hydrochlorothiazide/Triamterene 25-37.5 MG Cap PO SCH (08:51)
[2017-04-26] MEDS: Acetaminophen 500 MG Tab PO SCH (08:52)
[2017-04-26] MEDS: Calcitonin (Salmon) Nasal Spray 3.7 ML Bottle NAS SCH (08:52)
[2017-04-26] MEDS: Phenytoin 100 MG Cap.ER PO SCH (08:52)
[2017-04-26] MEDS: Cyanocobalamin (Vitamin B12) 1,000 MCG Tab PO SCH (08:52)
[2017-04-26] MEDS: Magnesium Oxide 400 MG Tab PO SCH (08:52)
[2017-04-26] MEDS: Vitamin B6-pyridOXINE 50 MG Tab PO SCH (08:53)
--- NOTE | 2017-04-26 11:31 | PCM.DCSUM1 ---
Discharge Summary - Hospital Course Brief History: Ms. Greco is a 77-year-old woman who was admitted through the emergency department with weakness and lethargy thought secondary to severe bradycardia. - Discharge Data Discharge Date: 04/26/17 Discharge Disposition: DC/Tfer to [facility] Ex [facility] Home04 Condition: Undetermined - Discharge Diagnosis/Problem(s) (1) Symptomatic bradycardia SNOMED Code(s): 88954407 ICD Code: R00.1 - BRADYCARDIA, UNSPECIFIED Status: Acute Current Visit: Yes - Patient Summary/Data Consults: Consultations 04/25/17 07:00 Consult to Physician [CONS] Routine Consulting Provider: Ga Kumari Call Completed to Consulting Physician: Yes Reason for Consult: Symptomatic bradycardia Hospital Course: Ms. Greco is a 77-year-old woman who is admitted through the emergency department with a recent history of progressive lethargy and weakness. On evaluation in the emergency department was noted to have significant sinus bradycardia with rates in the upper 30s and low 40s. On initial evaluation was felt that there was possible medication effect from her clonidine. For this reason the clonidine was held on admission and she was monitored over the next 2 days with modest improvement in heart rate. She remained lethargic from her baseline but is unable to communicate information concerning symptoms because of her congenital cognitive impairment. She was seen and evaluated by Dr. Kumari for surgical consult and pacemaker placement. Permission to proceed with patient and make her placement was received from her guardian Amie Rose. On the day prior to discharge she was taken to the operating room by Dr. 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 Dr. Kumari felt that could be an option in the future if she has ongoing symptoms consider epicardial pacemaker placement which would need to be done at a tertiary care center. At the present time we'll monitor over the next week or 2 to see how she does with current heart rate. Activity will be as tolerated and she will resume her usual diet. Follow-up appointment will be scheduled with her primary care provider in one week. - Patient Instructions Diet: Usual Diet as Tolerated Activity: As Tolerated Other/Special Instructions: Please schedule follow-up appointment with Dr. Mera in one week. - Discharge Plan Home Medications: Home Meds Acetaminophen [Tylenol Extra Strength] 500 mg PO TID 09/05/15 [History] Aspirin [Aspirin EC] 81 mg PO DAILY 09/05/15 [History] Calcium Carbonate/Vitamin D3 [Calcium 600-Vit D3 400 Tablet] 1 each PO TID 09/04 [History] Cyanocobalamin (Vitamin B-12) [B-12] 500 mcg PO DAILY 09/05/15 [History] Docusate Sodium [Doc-Q-Lace] 100 mg PO DAILY 09/05/15 [History] Ferrous Sulfate 324 mg PO BID 09/05/15 [History] Pantoprazole Sodium [Protonix] 40 mg PO DAILY 09/05/15 [History] Potassium Chloride 20 meq PO DAILY 09/05/15 [History] Simvastatin 20 mg PO DAILY 09/05/15 [History] Triamterene/Hydrochlorothiazid [Triamterene-HCTZ 37.5-25 MG] 1 each PO DAILY 04/11 [History] Calcitonin,[place],Synthetic [Calcitonin-[place]] 1 spray NS DAILY 04/22/17 [ History] Captopril [Capoten] 50 mg PO BID 04/22/17 [History] Cholecalciferol (Vitamin D3) [D3-2000] 2,000 unit PO DAILY 04/22/17 [History] Clotrimazole/Betamethasone Dip [Lotrisone Cream] 1 applic TP ASDIRECTED [History] Phenytoin Sodium Extended [Dilantin] 300 mg PO DAILY 04/22/17 [History] Pyridoxine HCl 100 mg PO DAILY 04/22/17 [History] Referrals: Tushar Mera MD [Primary Care Provider] - - Patient Data Vitals - Most Recent: Last Vital Signs Temp 97.6 F 04/26/17 08:00 Pulse 51 L 04/26/17 05:47 Resp 16 04/26/17 10:00 BP 95/49 L 04/26/17 10:00 Pulse Ox 97 04/26/17 10:00 Weight - Most Recent: 151 lb 10.848 oz I&O - Last 24 hours: Intake & Output 04/25/17 04/26/17 04/26/17 22:59 06:59 14:59 Intake Total 1690 200 Output Total 800 Balance 890 200 Med Orders - Current: Current Medications Acetaminophen (Tylenol Extra Strength) 500 mg PO TID [facility] Last Admin: 04/26/17 08:52 Dose: 500 mg Acetaminophen (Tylenol) 650 mg PO Q4H PRN PRN Reason: Pain (Mild 1-3)/fever Aspirin (Halfprin) 81 mg PO DAILY [facility] Last Admin: 04/26/17 08:51 Dose: 81 mg Calcitonin [place] (Miacalcin Nasal [place]) 0 ml TRAY DAILY [facility] Last Admin: 04/26/17 08:52 Dose: 1 spray Captopril (Capoten) 50 mg PO BID [facility] Last Admin: 04/26/17 08:51 Dose: 50 mg Cyanocobalamin (Vitamin B12) 500 mcg PO DAILY [facility] Last Admin: 04/26/17 08:52 Dose: 500 mcg Docusate Sodium (Colace) 100 mg PO DAILY [facility] Last Admin: 04/26/17 08:51 Dose: 100 mg Ferrous Sulfate (Ferrous Sulfate) 325 mg PO BIDMEALS [facility] Last Admin: 04/26/17 08:50 Dose: 325 mg Hydralazine HCl (Apresoline) 10 mg PO Q6H [facility] Last Admin: 04/26/17 10:26 Dose: Not Given Lorazepam (Ativan) 0.5 mg PO Q4H PRN PRN Reason: Anxiety Last Admin: 04/25/17 20:44 Dose: 0.5 mg Lorazepam (Ativan) 0.25 mg IVPUSH Q4H PRN PRN Reason: Anxiety Magnesium Oxide (Magnesium Oxide) 400 mg PO BID [facility] Last Admin: 04/26/17 08:52 Dose: 400 mg Ondansetron HCl (Zofran Odt) 4 mg PO Q6H PRN PRN Reason: Nausea able to take PO Pantoprazole Sodium (Protonix) 40 mg PO DAILY@0730 [facility] Last Admin: 04/26/17 08:50 Dose: 40 mg Phenytoin Sodium (Phenytoin) 300 mg PO DAILY [facility] Last Admin: 04/26/17 08:52 Dose: 300 mg Polyethylene Glycol (Miralax) 17 gm PO DAILY PRN PRN Reason: Constipation Pyridoxine HCl (Vitamin B6-Pyridoxine) 100 mg PO DAILY [facility] Last Admin: 04/26/17 08:53 Dose: 100 mg Simvastatin (Zocor) 20 mg PO BEDTIME [facility] Last Admin: 04/25/17 20:44 Dose: 20 mg Sodium Chloride (Saline Flush) 10 ml FLUSH ASDIRECTED PRN PRN Reason: Keep Vein Open Last Admin: 04/25/17 16:30 Dose: 10 ml Triamterene/HCTZ (Dyazide 25-37.5 Mg) 1 each PO DAILY [facility] Last Admin: 04/26/17 08:51 Dose: 1 each Discontinued Medications Bupivacaine HCl (Marcaine 0.5%) Confirm Administered Dose 50 ml .ROUTE .STK-MED ONE Stop: 04/25/17 09:08 Last Admin: 04/25/17 12:20 Dose: 2 ml Fentanyl (Sublimaze) Confirm Administered Dose 100 mcg .ROUTE .STK-MED ONE Stop: 04/25/17 10:42 Ferrous Sulfate (Ferrous Sulfate) 324 mg PO BID [facility] Last Admin: 04/25/17 10:31 Dose: Not Given Hydralazine HCl (Apresoline) 10 mg PO Q6H [facility] Last Admin: 04/25/17 08:00 Dose: 10 mg Sodium Chloride (Normal Saline) 1,000 mls @ 125 mls/hr IV ASDIRECTED [facility] Last Admin: 04/22/17 12:05 Dose: 125 mls/hr Magnesium Sulfate 2 gm/ Premix 50 mls @ 12.5 mls/hr IV Q6H [facility] Stop: 04/23/17 01:59 Last Admin: 04/22/17 22:27 Dose: 12.5 mls/hr Sodium Chloride (Normal Saline) 1,000 mls @ 75 mls/hr IV ASDIRECTED [facility] Last Admin: 04/23/17 19:37 Dose: 75 mls/hr Sodium Chloride (Normal Saline) 1,000 mls @ 100 mls/hr IV ASDIRECTED [facility] Last Admin: 04/25/17 15:02 Dose: 100 mls/hr Cefazolin Sodium/Dextrose 2 gm (/ Premix) 50 mls @ 100 mls/hr IV ONCALL ONE Stop: 04/25/17 11:59 Last Admin: 04/25/17 11:54 Dose: 100 mls/hr Linezolid (Zyvox) Confirm Administered Dose 100 mls @ as directed .ROUTE .STK- MED ONE Stop: 04/25/17 11:21 Lidocaine/Epinephrine (Xylocaine 1% With Epinephrine 1:100,000) Confirm Administered Dose 50 ml .ROUTE .STK-MED ONE Stop: 04/25/17 09:08 Last Admin: 04/25/17 12:21 Dose: 2 ml Lorazepam (Ativan) 0.5 mg IVPUSH Q4H PRN PRN Reason: Anxiety Last Admin: 04/22/17 17:06 Dose: 0.5 mg Meropenem (Merrem) Confirm Administered Dose 500 mg .ROUTE .STK-MED ONE Stop: 04/25/17 09:08 Midazolam HCl (Versed 1 Mg/Ml) Confirm Administered Dose 2 mg .ROUTE .STK-MED ONE Stop: 04/25/17 10:42 Potassium Chloride (Potassium Chloride Solution) 20 meq PO DAILY [facility] Propofol (Diprivan 20 Ml) Confirm Administered Dose 200 mg .ROUTE .STK-MED ONE Stop: 04/25/17 10:42 *Q Meaningful Use (DIS) - VTE *Q VTE Criteria *Q: VTE Pharmacological Contraindications *Q: Patient Scheduled Surgery - Stroke *Q Stroke Criteria *Q: - AMI *Q AMI Criteria *Q:
[2017-04-26 12:05] VITALS: BP 129/47
--- NOTE | 2017-04-28 13:45 | OR ---
DATE OF PROCEDURE: 04/22/2017 PREOPERATIVE DIAGNOSIS: Symptomatic bradycardia. POSTOPERATIVE DIAGNOSES: 1. Symptomatic bradycardia. 2. 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 OPERATIVE PROCEDURES: Access of left internal jugular vein with passage of guidewire ([id number]). ANESTHESIA: Local plus IV sedation. INDICATION FOR PROCEDURE: This is a 77-year-old female presenting with some symptomatic bradycardia. This has improved somewhat, but she is felt to be at risk for continued problems in this area and is referred regarding a pacemaker placement. Potential risks of the procedure including bleeding, infection, injury to the vasculature or lung, and possible malfunction of the pacemaker were reviewed with the patient's guardian, and they wished to proceed. The patient is severely impaired from a developmental status with an estimated development level of a 3-year-old. She is status post previous gastric carcinoma and bilateral port placement for chemotherapy. DETAILS OF PROCEDURE: The patient was taken to the operating room and placed in a supine position. IV sedation was administered after which the upper chest and neck areas were prepped and draped. Initially, the left subclavian area was anesthetized with 1% lidocaine and multiple passes were placed with the needle at no point with any significant blood return being identified. Ultrasound was then obtained which failed to show a patent subclavian vein in that area. Subclavian artery could be identified, but no drainage adjacent to it was seen. Attention was then taken to the right side where similar sequence occurred, again without any blood return at any point being reported. The ultrasound confirmed once again that there was no patency of right subclavian vein as well. The right internal jugular area was then identified and here we only saw some collateral venous vessels, but then no significant identifiable internal jugular vein. On the left side then, ultrasound did show a well-defined internal jugular vein. The skin overlying this was anesthetized with 1% lidocaine. The vein was then cannulated and a guidewire was passed. Guidewire could be manipulated only to the area which would be expected to be the junction of the left and right innominate veins. With ongoing fluoroscopic surveillance, multiple movements of the wire, this could never be passed beyond that point. It appeared that the patient likely had an occlusion of the venous system at that level. This was consistent with the patient having a large amount of collateral vasculature in the skin along the chest wall. 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 The procedure was then concluded with removal of the guidewire. With all this, speaking of the options in this case if a pacemaker was required, would be placement of the lead via the femoral vein. This requires, however, a 26-Arabic delivery system which would likely be too large for this patient's veins. The other option would be placement of epicardial leads via mini-thoracotomy. These issues will be discussed with Dr. Aleman and the patient's guardian. We would then proceed from that point further. It is possible at this point, it may be worthwhile simply to back off and see how the patient does clinically. Ga Kumari MD /[id number]
== END 2017-04-26 13:15 | DRG 309 ==
LOC: JP.ED 10:55 → JP.ICU 12:22
PROVIDERS: ADMIT Internal Medicine; ATTEND Hospitalist
PROC: 05JY3ZZ Inspection of Upper Vein, Percutaneous Approach (ICD-10-PCS; principal; 2017-04-22)
DX: R00.1 Bradycardia, unspecified (principal); I82.B13 Acute embolism and thrombosis of subclavian vein, bilateral; I82.C11 Acute embolism and thrombosis of right internal jugular vein; I10 Essential (primary) hypertension; R53.1 Weakness; R53.83 Other fatigue; G40.909 Epilepsy, unspecified, not intractable, without status epilepticus; F79 Unspecified intellectual disabilities; Z87.11 Personal history of peptic ulcer disease; M19.90 Unspecified osteoarthritis, unspecified site; K21.9 Gastro-esophageal reflux disease without esophagitis; E78.00 Pure hypercholesterolemia, unspecified; H54.7 Unspecified visual loss; Z79.82 Long term (current) use of aspirin; Z85.028 Personal history of other malignant neoplasm of stomach; Z92.21 Personal history of antineoplastic chemotherapy
CPT/HCPCS: 36415; 80048; 83735; 84439; 84443; 84484; 85027; 99285; J7040; J7050; 99284; A9270-GY; J0690; J2020; J2060; J2185; J2250; J2704; J3010; J3475

== ENCOUNTER 2017-04-26 18:03 | Emergency (ER) | payer MEDICARE ==
--- NOTE | 2017-04-26 19:03 | EDM.PDOC ---
ED HPI GENERAL MEDICAL PROBLEM - General Chief Complaint: Cardiovascular Problem Stated Complaint: ILLNESS Time Seen by Provider: 04/26/17 18:40 Source of Information: Reports: Old Records, RN History Limitations: Reports: Other (patient not able to offer any history) - History of Present Illness INITIAL COMMENTS - FREE TEXT/NARRATIVE: 77 yo female was recently admitted here for fatigue felt to be due to bradycardia. When holding her clonidine did not resolve the bradycardia an attempt was made unsuccessfully to place a cardiac pacemaker. Patient was stable throughout her hospital course so family was given the option to transfer for pacemaker, place in a [facility], or return to her longterm. The consensus was to return her to her longterm while family discussed the merits of transfer for pacemaker placment. She was sent home to the longterm this afternoon from our hospital and was there only a few hrs and was returned clinically unchanged from the longterm via EMS. Family is now OK with transfer for pacemaker placement as they are not able to care for her themselves. Onset: Unknown/Unsure Duration: Day(s):, Constant Quality: Reports: Other (no known pain) Severity: Moderate Improves with: Reports: Rest Context: Reports: Other (no known cause for bradycardia) Associated Symptoms: Reports: Other (? fatigue) Treatments CAMP COORDINATOR: Reports: Other (see below) (clonidine withheld, attempted pacemaker placement without success here at [facility]) - Related Data Allergies Allergy/AdvReac Type Severity Reaction Status Date / Time No Known Allergies Allergy Verified 04/22/17 11:13 Home Meds: Home Meds Acetaminophen [Tylenol Extra Strength] 500 mg PO TID 09/05/15 [History] Aspirin [Aspirin EC] 81 mg PO DAILY 09/05/15 [History] Calcium Carbonate/Vitamin D3 [Calcium 600-Vit D3 400 Tablet] 1 each PO TID 09/04 [History] Cyanocobalamin (Vitamin B-12) [B-12] 500 mcg PO DAILY 09/05/15 [History] Docusate Sodium [Doc-Q-Lace] 100 mg PO DAILY 09/05/15 [History] Ferrous Sulfate 324 mg PO BID 09/05/15 [History] Pantoprazole Sodium [Protonix] 40 mg PO DAILY 09/05/15 [History] Potassium Chloride 20 meq PO DAILY 09/05/15 [History] Simvastatin 20 mg PO DAILY 09/05/15 [History] Triamterene/Hydrochlorothiazid [Triamterene-HCTZ 37.5-25 MG] 1 each PO DAILY 04/11 [History] Calcitonin,[place],Synthetic [Calcitonin-[place]] 1 spray NS DAILY 04/22/17 [ History] Captopril [Capoten] 50 mg PO BID 04/22/17 [History] Cholecalciferol (Vitamin D3) [D3-2000] 2,000 unit PO DAILY 04/22/17 [History] Clotrimazole/Betamethasone Dip [Lotrisone Cream] 1 applic TP ASDIRECTED [History] Phenytoin Sodium Extended [Dilantin] 300 mg PO DAILY 04/22/17 [History] Pyridoxine HCl 100 mg PO DAILY 04/22/17 [History] Past Medical History HEENT History: Reports: Impaired Vision Cardiovascular History: Reports: High Cholesterol, Hypertension Gastrointestinal History: Reports: Cholelithiasis, Chronic Constipation, Colon Polyp, GERD, Other (See Below) Other Gastrointestinal History: Gastric cancer Genitourinary History: Reports: Urinary Incontinence Other Genitourinary History: Does alert staff when needs to use bathroom. Does not wear depends. Musculoskeletal History: Reports: Fracture, Neck Pain, Chronic, Osteoarthritis Neurological History: Reports: Seizure Psychiatric History: Reports: Learning Disability, Other (See Below) Other Psychiatric History: Mental retardation Endocrine/Metabolic History: Reports: Osteopenia Hematologic History: Reports: Anemia, Iron Deficiency Oncologic (Cancer) History: Reports: Other (See Below) Other Oncologic History: Stomach Dermatologic History: Reports: Eczema - Infectious Disease History Infectious Disease History: Reports: Chicken Pox, Measles, Mumps - Past Surgical History GI Surgical History: Reports: Cholecystectomy, Colonoscopy, Other (See Below) Social & Family History - Family History Family Medical History: Unobtainable - Tobacco Use Smoking Status *Q: Never Smoker Second Hand Smoke Exposure: No - Caffeine Use Caffeine Use: Reports: Coffee - Alcohol Use Days Per Week of Alcohol Use: 0 - Recreational Drug Use Recreational Drug Use: No ED ROS GENERAL - Review of Systems Review Of Systems: Unable To Obtain (Patient not mentally able to provide.) ED EXAM, GENERAL - Physical Exam Exam: See Below Exam Limited By: No Limitations General Appearance: Alert, WD/WN, No Apparent Distress Eye Exam: Bilateral Eye: Normal Inspection, PERRL Ears: Normal External Exam, Normal Canal, Hearing Grossly Normal Ear Exam: Bilateral Ear: Auricle Normal, Canal Normal Nose: Normal Inspection, Normal Mucosa, No Blood Throat/Mouth: Normal Inspection, Normal Lips, Normal Oropharynx, Normal Voice, No Airway Compromise Head: Atraumatic, Normocephalic Neck: Normal Inspection, Supple Respiratory/Chest: No Respiratory Distress, Lungs Clear, Normal Breath Sounds, No Accessory Muscle Use Cardiovascular: Regular Rate, Rhythm, No Edema GI/Abdominal: Normal Bowel Sounds, Soft, Non-Tender, No Distention Back Exam: Normal Inspection Extremities: Normal Inspection Neurological: Alert, CN II-XII Intact, No Motor/Sensory Deficits, Other ( chronic mental retardation) Psychiatric: Normal Affect, Normal Mood Skin Exam: Warm, Dry, Intact, Normal Color, No Rash Lymphatic: No Adenopathy Course - Vital Signs Last Recorded V/S: Last Vital Signs Temp 30 C L 04/26/17 18:13 Pulse 35 L 04/26/17 18:13 Resp 14 04/26/17 18:13 BP 192/64 H 04/26/17 18:13 Pulse Ox 100 04/26/17 18:13 Departure - Departure Time of Disposition: 19:20 Disposition: DC/Tfer to Acute Hospital 02 Reason for Transfer *Q: Other Condition: Fair Clinical Impression: Bradycardia Referrals: PCP,None [Primary Care Provider] -
[2017-04-26] MEDS ORDERED: Sodium Chloride 0.9% 10 ML Syringe FLUSH PRN (19:10)
[2017-04-26 19:43] VITALS: BP 173/61
== END 2017-04-26 20:02 ==
LOC: JP.ED 18:03
DX: R00.1 Bradycardia, unspecified (principal); I10 Essential (primary) hypertension; E78.00 Pure hypercholesterolemia, unspecified; Z79.82 Long term (current) use of aspirin; Z79.899 Other long term (current) drug therapy
CPT/HCPCS: 99285; J7050; 99284

== ENCOUNTER 2017-08-13 13:19 | Emergency (ER) | payer MEDICARE ==
[2017-08-13 14:46] VITALS: BP 154/71
--- NOTE | 2017-08-13 15:14 | EDM.PDOC ---
ED HPI GENERAL MEDICAL PROBLEM - General Chief Complaint: General Stated Complaint: POSSIBLE PNEUMONIA Time Seen by Provider: 08/13/17 15:11 Source of Information: Reports: Family, RN Notes Reviewed History Limitations: Reports: Physical Impairment - History of Present Illness INITIAL COMMENTS - FREE TEXT/NARRATIVE: 77-year-old female known history of mental retardation recently admitted the hospital for aspiration pneumonia July 31, was in clinic for follow-up concern for reactivation of pneumonia however clinic providers did have difficulty with performing a chest x-ray they needed to remove her shirt which has sparkles on it and she became very upset and agitated they were able to do blood work blood work is reassuring except for potassium is elevated at 5.6, she does take supplemental potassium - Related Data Allergies Allergy/AdvReac Type Severity Reaction Status Date / Time No Known Allergies Allergy Verified 08/13/17 14:48 Home Meds: Home Meds Acetaminophen [Tylenol Extra Strength] 500 mg PO TID 09/05/15 [History] Aspirin [Aspirin EC] 81 mg PO DAILY 09/05/15 [History] Calcium Carbonate/Vitamin D3 [Calcium 600-Vit D3 400 Tablet] 1 each PO TID 09/04 [History] Cyanocobalamin (Vitamin B-12) [B-12] 500 mcg PO DAILY 09/05/15 [History] Docusate Sodium [Doc-Q-Lace] 100 mg PO DAILY 09/05/15 [History] Ferrous Sulfate 324 mg PO BID 09/05/15 [History] Pantoprazole Sodium [Protonix] 40 mg PO DAILY 09/05/15 [History] Potassium Chloride 20 meq PO DAILY 09/05/15 [History] Simvastatin 20 mg PO DAILY 09/05/15 [History] Triamterene/Hydrochlorothiazid [Triamterene-HCTZ 37.5-25 MG] 1 each PO DAILY 04/11 [History] Calcitonin,[place],Synthetic [Calcitonin-[place]] 1 spray NS DAILY 04/22/17 [ History] Captopril [Capoten] 50 mg PO BID 04/22/17 [History] Cholecalciferol (Vitamin D3) [D3-2000] 2,000 unit PO DAILY 04/22/17 [History] Clotrimazole/Betamethasone Dip [Lotrisone Cream] 1 applic TP ASDIRECTED [History] Phenytoin Sodium Extended [Dilantin] 300 mg PO DAILY 04/22/17 [History] Pyridoxine HCl 100 mg PO DAILY 04/22/17 [History] Past Medical History HEENT History: Reports: Impaired Vision Cardiovascular History: Reports: High Cholesterol, Hypertension Gastrointestinal History: Reports: Cholelithiasis, Chronic Constipation, Colon Polyp, GERD, Other (See Below) Other Gastrointestinal History: Gastric cancer Genitourinary History: Reports: Urinary Incontinence Other Genitourinary History: Does alert staff when needs to use bathroom. Does not wear depends. Musculoskeletal History: Reports: Fracture, Neck Pain, Chronic, Osteoarthritis Neurological History: Reports: Seizure, Speech Problems, Other (See Below) ( Developmental delay) Psychiatric History: Reports: Learning Disability, Other (See Below) Other Psychiatric History: Mental retardation Endocrine/Metabolic History: Reports: Osteopenia Hematologic History: Reports: Anemia, Iron Deficiency Oncologic (Cancer) History: Reports: Other (See Below) Other Oncologic History: Stomach Dermatologic History: Reports: Eczema - Infectious Disease History Infectious Disease History: Reports: Chicken Pox, Measles, Mumps - Past Surgical History GI Surgical History: Reports: Cholecystectomy, Colonoscopy, Other (See Below) Social & Family History - Family History Family Medical History: Unobtainable - Tobacco Use Smoking Status *Q: Never Smoker Second Hand Smoke Exposure: No - Caffeine Use Caffeine Use: Reports: Coffee - Alcohol Use Days Per Week of Alcohol Use: 0 - Recreational Drug Use Recreational Drug Use: No ED ROS GENERAL - Review of Systems Review Of Systems: See Below (Obtained from caregiver) Constitutional: Reports: Other (Seems more lethargic than usual) HEENT: Reports: No Symptoms Respiratory: Reports: No Symptoms Cardiovascular: Reports: No Symptoms GI/Abdominal: Reports: No Symptoms : Reports: No Symptoms Musculoskeletal: Reports: Joint Pain (Right ankle pain) ED EXAM, GENERAL - Physical Exam Exam: See Below Free Text/Narrative:: Examination of the ankle I do appreciate some edema there is no specific point tenderness anterior drawer and tilt test are both negative Exam Limited By: Physical Impairment General Appearance: Alert Neck: Normal Inspection, Supple, Non-Tender, Full Range of Motion Respiratory/Chest: No Respiratory Distress, Lungs Clear, Normal Breath Sounds, No Accessory Muscle Use Cardiovascular: Regular Rate, Rhythm, No Murmur Course - Vital Signs Last Recorded V/S: Last Vital Signs Temp 94.8 F L 08/13/17 14:51 Pulse 41 L 08/13/17 14:51 Resp 13 08/13/17 14:51 BP 154/71 H 08/13/17 14:51 Pulse Ox 98 08/13/17 14:51 - Orders/Labs/Meds Orders: Active Orders 24 hr Category Date Time Status Ankle Min 3V Rt [CR] Stat Exams 08/13/17 15:10 Taken Chest 1V Frontal [CR] Stat Exams 08/13/17 15:10 Taken Departure - Departure Time of Disposition: 16:02 Disposition: Home, Self-Care 01 Condition: Fair Clinical Impression: Bradycardia - Discharge Information Referrals: Tushar Mera MD [Primary Care Provider] - Forms: ED Department Discharge Additional Instructions: Follow-up with your primary care provider in the next 3-5 days for reevaluation of the hospital follow-up from aspiration pneumonia and the ongoing slow heart rate, call return to the emergency department worsening of symptoms - My Orders Last 24 Hours: My Active Orders 08/13/17 15:10 Ankle Min 3V Rt [CR] Stat Chest 1V Frontal [CR] Stat - Assessment/Plan Last 24 Hours: My Active Orders 08/13/17 15:10 Ankle Min 3V Rt [CR] Stat Chest 1V Frontal [CR] Stat Plan: Assessment Acuity = acute Site and laterality = bradycardia, complicated in a patient with known history of developmental delay and recent history of aspiration pneumonia Etiology = unclear etiology Manifestations = none Location of injury = Home Lab values = chest x-ray and ankle x-ray I did review films myself I cannot appreciate any acute process, the official read from radiology is pending Plan I did review blood work with them from clinic as well as checks x-ray results have her follow-up with primary care in the next 3-5 days for reevaluation as well as further evaluation of the bradycardia This note was dictated using [employer] voice recognition software please call with any questions on syntax or ortiz.
--- NOTE | 2017-08-14 08:48 | CR ---
Right ankle Findings: There is been prior internal fixation of a fracture of the distal fibula as well as medial malleolus. The fractures have healed. There is diffuse edema throughout the lower leg and ankle. There are no f indings of acute fracture. Impression: 1. Diffuse edema. 2. No evidence of acute fracture.
--- NOTE | 2017-08-14 08:49 | CR ---
Chest 1V Frontal FINDINGS: The heart and vascular structures are normal in appearance. No infiltrates or effusions are demonstrated. There are degenerative findings of the shoulders. Impression: 1. No acute findings.
== END 2017-08-13 16:14 | disposition home or self-care (01) ==
LOC: JP.ED 13:19
DX: R00.1 Bradycardia, unspecified (principal); F79 Unspecified intellectual disabilities; I10 Essential (primary) hypertension; K21.9 Gastro-esophageal reflux disease without esophagitis; E78.00 Pure hypercholesterolemia, unspecified; M19.90 Unspecified osteoarthritis, unspecified site; Z87.01 Personal history of pneumonia (recurrent); Z79.899 Other long term (current) drug therapy; Z79.82 Long term (current) use of aspirin
CPT/HCPCS: 71045; 71045-26; 73610-26-RT; 73610-RT; 99283; 99284